=== PATIENT | female | born 1995 | race Caucasian/White ===

== ENCOUNTER 2020-06-27 15:10 | Emergency (ER) | payer BC ==
[~2020-06-27] VITALS: Ht 152.4 cm; Wt 54.0 kg
[2020-06-27 16:45] LABS: BASOPHILS % 0.8 % (0.0-2.0); EOSINOPHILS % 1.2 % (0.0-5.0); HEMATOCRIT. 37.8 % (36.0-48.0); LYMPHOCYTES % 33.8 % (20.0-50.0); MEAN CORPUSCULAR VOLUME 90.2 fL (81.0-99.0); MEAN PLATELET VOLUME 8.4 fl (7.4-10.4); MONOCYTES % 8.1 % (2.0-8.0); NEUTROPHILS % 56.1 % (40.0-76.0); PLATELET 259 x1000/uL (130-400); RED BLOOD CELL COUNT 4.19 mill/uL (4.2-5.4); RED CELL DISTRIBUTION WIDTH 12.8 % (11.6-14.6)
[2020-06-27 16:51] LABS: CHLORIDE 108 mEq/L (98-107)
[2020-06-27 17:33] LABS: B-HCG QUANTITATIVE 33105 mIU/mL (<3)
[2020-06-27 17:50] VITALS: BP 99/62
[2020-06-27 17:55] LABS: CLARITY URINE CLEAR (CLEAR); COLOR URINE YELLOW (YELLOW); KETONES URINE TRACE (NEGATIVE); LEUKOCYTE ESTERASE URINE 1+ (NEGATIVE); NITRITE URINE NEGATIVE (NEGATIVE); OCCULT BLOOD URINE 1+ (NEGATIVE); PROTEIN URINE NEGATIVE (NEGATIVE); SPECIFIC GRAVITY URINE 1.021 (1.005-1.030)
== END 2020-06-27 18:51 | disposition home or self-care (01) ==
LOC: ER 15:17
DX: O20.9 Hemorrhage in early pregnancy, unspecified (principal); O23.41 Unspecified infection of urinary tract in pregnancy, first trimester; Z3A.01 Less than 8 weeks gestation of pregnancy
CPT/HCPCS: 36415; 76801; 80053; 81003; 81025; 84702; 85025; 86850; 86900; 93005; 99285